=== PATIENT | female | born 1965 | race Caucasian/White ===

== ENCOUNTER → 2017-01-03 | Outpatient (CLI) | payer BC ==
[~2017-01-03] MED LIST: ESTR0.4T PO; PERC5TAB12 PO; ZOFR8TAB4 SL
--- NOTE | 2017-01-04 13:39 | EKG ---
Date Performed: 01/03/2017 Time Performed: 14:22:04 PTAGE: 51 years EKG: SINUS BRADYCARDIA BORDERLINE ECG NO PREVIOUS TRACING DOCTOR: Kj Jacome Interpretating Date/Time 01/04/2017 13:38:49
== END ==
LOC: CPRE 13:25
PROVIDERS: ATTEND Obstetrics & Gynecology
DX: Z01.810 Encounter for preprocedural cardiovascular examination (principal); D25.9 Leiomyoma of uterus, unspecified; R10.2 Pelvic and perineal pain; R94.31 Abnormal electrocardiogram [ECG] [EKG]
CPT/HCPCS: 93005

== ENCOUNTER 2017-01-05 11:57 | Observation (INO) | payer BC ==
--- NOTE | 2017-01-04 11:51 | MH ---
cc: SIMONE BLACKWOOD M.D. DATE OF ADMISSION: 01/05/2017 ADMITTING DIAGNOSIS Menorrhagia, dysmenorrhea with uterine fibroids and ovarian cyst. HISTORY OF PRESENT ILLNESS A 51-year-old white female para 3-0-0-3, returned for a follow-up visit on 12/22/2016. Has had multiple episodes of menstrual cramping pain, pelvic pressure, bladder pressure and colon pressure. A pelvic ultrasound showed multiple fibroids, uterus enlarged to about 14 weeks' size, benign-appearing ovaries, Endometrium was 10 mm. Her symptoms have become incapacitating and she is now admitted for hysterectomy. PAST MEDICAL HISTORY PREVIOUS SURGERY 1. She had T&A in childhood. 2. Ectopic in 1984. 3. Breast augmentation in 2005. MEDICATIONS Frova for migraines. Combo ER. ALLERGIES None. TRANSFUSIONS None. SOCIAL HISTORY She is , employed at [employer]. Alcohol occasional. Tobacco none. Drugs none. FAMILY HISTORY Her family history is noncontributory. PHYSICAL EXAMINATION GENERAL: This is a well-nourished, well-developed white female. VITAL SIGNS: Stable. HEENT EXAM: Normal. CHEST: Clear. HEART: Regular rate. BREASTS: Symmetrical. ABDOMEN: Benign. PELVIC EXAM: Vagina is normal. Cervix is normal. Uterus is enlarged, about 14 weeks' size. Adnexa are not palpable. ASSESSMENT As above. PLAN She is now admitted for a D&C, frozen section with planned LASH/BSO, possible ANGELA/BSO. The risks, benefits and complications were explained and accepted. MD MASTER Downing/KELVIN /11:35 AM /11:40 AM
[~2017-01-05] VITALS: Ht 172.7 cm; Wt 78.2 kg
[~2017-01-05 11:57] MED LIST changes: +BUPIVACAINE LIPOSOME PF 1.3% 20 ML VIAL ONE; +DEXAMETHASONE SOD PHOS PF 10 MG/ML VIAL IV ONE; -ESTR0.4T PO; -PERC5TAB12 PO; -ZOFR8TAB4 SL
[2017-01-05] MEDS ORDERED: NEOSTIGMINE 3 MG/3 ML SYR IV ONE (12:00)
[2017-01-05] MEDS ORDERED: KETOROLAC TROMETHAMINE 60 MG/2 ML (IM) VIAL IM ONE (12:00)
[2017-01-05] MEDS ORDERED: PROPOFOL 200 MG/20 ML AMP IV ONE (12:00)
[2017-01-05] MEDS ORDERED: ONDANSETRON HCL 4 MG/2 ML VIAL IV PUSH ONE (12:00)
[2017-01-05] MEDS ORDERED: ESTR0.4T PO (12:41)
[2017-01-05 12:45] VITALS: BP 128/78; PULSE 53; RESP 16; TEMP 98.1; O2SAT 98
[2017-01-05] MEDS ORDERED: METOPROLOL TARTRATE 25 MG TAB PO PRN (12:45)
[2017-01-05] MEDS ORDERED: LACTATED RINGER'S 1000 ML IV PRN (12:45)
[2017-01-05] MEDS ORDERED: ACETAMINOPHEN 1000 MG/100 ML VIAL IV SCH ×2 (12:45→17:00)
[2017-01-05] MEDS ORDERED: SODIUM CHLORID 0.9% 500 ML IV PRN (12:45)
[2017-01-05] MEDS ORDERED: ceFAZolin 2 GM PREMIX 50 ML IV SCH (12:45)
[2017-01-05] MEDS ORDERED: CHLORHEXIDINE GLUCONATE 2 % 1 PACK (2 CLOTHS) TOPICAL PRN (12:45)
[2017-01-05] MEDS ORDERED: INSULIN HUMAN REGULAR 1,000 UNITS/10 ML VIAL SQ PRN (12:45)
[2017-01-05] MEDS ORDERED: POVIDONE IODINE 5% (ANTISEPSIS KIT) 4 APPLICATIONS EACH NARE PRN (12:45)
[2017-01-05 13:14] LABS: BETA HCG QUANT 2 MIU/ML (0-5)
[2017-01-05] MEDS ORDERED: D5-1/2 NS + KCL 20 MEQ INJ 1,000 ML IV SCH (16:54)
[2017-01-05] MEDS ORDERED: ONDANSETRON ODT 4 MG TAB PO PRN (17:00)
[2017-01-05] MEDS ORDERED: ONDANSETRON HCL 4 MG/2 ML VIAL IV PRN (17:00)
[2017-01-05] MEDS ORDERED: SODIUM CHLORIDE 0.9% FLUSH 5 ML FLUSH FLUSH PRN (17:00)
[2017-01-05] MEDS: KETOROLAC TROMETHAMINE 30 MG/ML (IVP) VIAL IVP SCH (17:00)
[2017-01-05] MEDS ORDERED: METOCLOPRAMIDE HCL 10 MG/2 ML VIAL IV PUSH PRN (17:00)
[2017-01-05] MEDS ORDERED: HYDROmorphone HCL PF 1 MG/ML VIAL IV PRN (17:00)
[2017-01-05] MEDS ORDERED: DOCUSATE SODIUM 100 MG CAP PO SCH (17:00)
[2017-01-05] MEDS ORDERED: diphenhydrAMINE HCL 25 MG CAP PO PRN (17:00)
[2017-01-05] MEDS ORDERED: ZOLPIDEM TARTRATE 5 MG TAB PO PRN (17:00)
[2017-01-05] MEDS ORDERED: MIDAZOLAM HCL 2 MG/2 ML VIAL ONE (17:18)
[2017-01-05] MEDS ORDERED: fentaNYL CITRATE 250 MCG/5 ML AMP ONE (17:18)
[2017-01-05] MEDS ORDERED: *morphine SULFATE 8 MG/ML PERIprocedure ONLY ONE (17:45)
[2017-01-05] MEDS ORDERED: DO NOT ADM ANY ANTICOAGULANT DRUGS PRN (18:30)
[2017-01-05 19:32] LABS: REVIEW FLAG FINAL
[2017-01-05 19:55] VITALS: BP 127/65; PULSE 52; RESP 18; TEMP 97.3; O2SAT 92
[2017-01-05] MEDS ORDERED: SODIUM CHLORIDE 0.9% FLUSH 5 ML FLUSH FLUSH SCH (21:00)
[2017-01-05] MEDS: ACETAMINOPHEN 1000 MG/100 ML VIAL IV SCH (21:16)
[2017-01-06 00:04] VITALS: BP 107/55; PULSE 60; RESP 17; TEMP 97.2; O2SAT 92
[2017-01-06] MEDS: KETOROLAC TROMETHAMINE 30 MG/ML (IVP) VIAL IVP SCH ×2 (00:11→05:37)
[2017-01-06 04:01] VITALS: BP 103/55; PULSE 56; RESP 18; TEMP 96.3; O2SAT 92
[2017-01-06] MEDS: ACETAMINOPHEN 1000 MG/100 ML VIAL IV SCH (05:37)
[2017-01-06 07:35] LABS: AUTOMATED NEUTROPHIL # 8.1 TH/MM3 (1.8-7.7); BASOPHIL % 0.4 % (0.0-2.0); HEMATOCRIT 43.6 % (35.0-46.0); HEMO FLAGS DIFF FINAL; LYMPHOCYTE # 0.9 TH/MM3 (1.0-4.8); MEAN CELL VOLUME 88.9 FL (80.0-100.0); MEAN CORPUSCULAR HEMOGLOBIN 29.1 PG (27.0-34.0); MEAN CORPUSCULAR HGB CONC 32.8 % (32.0-36.0); MONO % 4.4 % (0.0-8.0); NEUT % 85.2 % (16.0-70.0); PLATELET COUNT 273 TH/MM3 (150-450); RED BLOOD COUNT 4.91 MIL/MM3 (4.00-5.30); WHITE BLOOD COUNT 9.5 TH/MM3 (4.0-11.0)
[2017-01-06 07:40] VITALS: BP 96/51; PULSE 50; RESP 16; TEMP 96.1; O2SAT 92
[2017-01-06 07:57] LABS: BICARBONATE 25.8 MEQ/L (21.0-32.0); POTASSIUM 4.4 MEQ/L (3.5-5.1)
[2017-01-06] MEDS ORDERED: PERC5TAB12 PO (10:25)
[2017-01-06] MEDS ORDERED: ZOFR8TAB4 SL (10:25)
--- NOTE | 2017-01-14 09:45 | MP ---
cc: SIMONE BLACKWOOD DATE OF SURGERY: 01/05/2017 PREOPERATIVE DIAGNOSIS Pelvic pain. Uterine fibroids. POSTOPERATIVE DIAGNOSIS Pelvic pain. Uterine fibroids. PROCEDURE D&C with frozen section followed by laparoscopy with a LASH and BSO. ANESTHESIA General endotracheal. SURGEON Simone Blackwood MD GEOGRAPHY FACULTY MEMBER SIMONE Parikh ESTIMATED BLOOD LOSS 50 cc. FLUIDS 1.1 liters crystalloid. OBJECTIVE FINDINGS Following the induction of adequate general endotracheal anesthesia the patient was prepped and draped supine on the operating table in the dorsal lithotomy position in the usual sterile fashion with the bladder being drained with Minaya catheterization. Exam under anesthesia revealed a 14 week size uterus with fibroids. A heavy weighted speculum was placed in the posterior fornix of the vagina. The anterior lip of the cervix was grasped with a single-tooth tenaculum. The cervix and uterus sounded to 8 cm. The cervix was dilated with a 18 Hanks dilator. The endocervix was curetted with a small sharp curette for permanent study, the endometrium a small sharp curette for frozen section. The vaginal instruments were removed. The sand mill operator's gloves were changed. The abdomen was opened through a 3 cm curving infraumbilical incision using a knife to cut down to the fascia. The fascia was opened transversely. The rectus muscle was split in the midline and the peritoneum opened sharply without incident. The GelPort was placed. The laparoscope was inserted. A 5 port was placed in the left lower quadrant and an AirSeal port in the right lower quadrant. The uterus was about 14 weeks' size with fibroids. Normal tubes, normal ovaries, normal cul-de-sacs. Liver edge normal. Appendix normal. Working first on the left a Harmonic scalpel was used to take the left ovarian vessel, left round ligament, left broad ligament, left side of the bladder flap and uterine vessels. The same on the right. Frozen section returned benign. The Harmonic scalpel was used to amputate the fundus from the cervix. A pouch was inserted and used to extract the uterus, tubes and ovaries intact. Irrigation was performed. No bleeding was evident. The operative sites were coated with Evicel. The GelPort was now removed. The peritoneum was sutured with running 2-0 Vicryl. The fascia was sutured with a running locking stitch of 0 Vicryl corner to midline and tied, subcu with running 3-0 Vicryl and skin with running 3-0 Monocryl and Dermabond. The scope was now reinserted through the lower port site and used to inspect the upper port site which was well-closed, no bleeding. The ureters were inspected with good peristalsis. The scope was removed, gas was allowed to escape. The small port is closed with 3-0 Monocryl. Dermabond is applied. All counts were correct. The patient was awakened and taken to the recovery room in good condition. MD MASTER Downing/NADEEM /6:44 PM /9:27 AM
== END 2017-01-06 11:20 | disposition home or self-care (01) ==
LOC: HSDC 11:57 → HSDI 16:57 → N06A 20:00 → HSDC 20:00
PROVIDERS: ADMIT Obstetrics & Gynecology; ATTEND Obstetrics & Gynecology
DX: D25.9 Leiomyoma of uterus, unspecified (principal); N92.0 Excessive and frequent menstruation with regular cycle; G43.909 Migraine, unspecified, not intractable, without status migrainosus; Z87.891 Personal history of nicotine dependence; R10.2 Pelvic and perineal pain; Z01.810 Encounter for preprocedural cardiovascular examination
CPT/HCPCS: 00840; 58542; 80048; 84702; 85014; 85018; 85025; 86850; 86900; 86901; 88305; 88307; 88331; 93005; C9290; G0378; J0131; J0690; J1100; J1170; J1885; J2250; J2270; J2405; J2710; J3010; J3480; J7120